=== PATIENT | female | born 1940 | race Caucasian/White ===

== ENCOUNTER → 2018-02-15 14:10 | Outpatient (CLI) | payer MEDICARE, OTHER, SELFPAY ==
--- NOTE | 2018-02-15 14:16 | CT_ITS ---
STUDY: CT ABDOMEN AND PELVIS WITH AND WITHOUT CONTRAST REASON FOR EXAM: Female, 77 years old. Hematuria. RADIATION DOSAGE (If Supplied By Facility): CTDIvol = ( 30.91 ) mGy, DLP = ( 2093.68 ) mGycm TECHNIQUE: Transaxial images were obtained from the dome of the diaphragm to the symphysis pubis without oral contrast. 100ml ml of Isovue 300 contrast was administered. Sagittal and coronal images were reconstructed. Individualized dose optimization techniques were used for this CT. COMPARISON: None. FINDINGS: The visualized lung bases are unremarkable. The visualized portions of the heart are within normal limits. Normal liver. There are surgical clips in the gallbladder fossa consistent with a prior cholecystectomy. Normal spleen. Is fatty replacement of the pancreas without focal mass. Normal bilateral adrenal glands. The right kidney is of normal size and cortical thickness. There is normal enhancement. There is no calyceal dilatation. There is a 1.1 x 0.9 x 0.9 cm calcification in the renal pelvis with mild peripelvic stranding. The right ureter is mildly prominent but passes of the bladder without filling defect. There are cysts in the upper pole of the otherwise normal left kidney. There is no renal calculi or hydronephrosis. Normal left ureter. Normal visualized stomach. Normal small intestine. There is sigmoid diverticulosis without acute inflammatory change. There are surgical clips in the region of the appendix consistent with a prior appendectomy. Normal abdominal aorta. Normal inferior vena cava. Normal retroperitoneum. Normal urinary bladder. Normal vaginal cuff. There is no pelvic lymphadenopathy or mass. No free air or free fluid is seen within the peritoneal cavity. Normal abdominal wall. There is surgical fusion of L5-S1. CT/CT Abd/Pelvis W/WO Contrast IMPRESSION: 1. Large calculus in the right renal pelvis with associated stranding. 2. Left renal cysts. 3. Diverticulosis. 4. Fatty replacement of the pancreas. 5. Status post appendectomy and hysterectomy. 6. Status post cholecystectomy. 7. Posterior fusion of L5-S1. Electronically Signed: Miguel Magallanes DO at 21:12 EDT Tel [phone], Service support ,
[2018-02-15 14:41] LABS: CREATININE FINGERSTICK 0.8 mg/dL (0.55-1.02); EGFR FINGERSTICK > 60.0000 mL/min (>60)
== END ==
PROVIDERS: Family Provider Family Medicine; PCP Family Medicine; Referring Provider Nurse Practitioner Adult Health; Visit Provider Nurse Practitioner Adult Health
DX: N20.0 Calculus of kidney (principal); N28.1 Cyst of kidney, acquired; K57.90 Diverticulosis of intestine, part unspecified, without perforation or abscess without bleeding
CPT/HCPCS: 74178; Q9967

== ENCOUNTER → 2018-02-19 14:17 | Outpatient (CLI) | payer MEDICARE, OTHER, SELFPAY ==
--- NOTE | 2018-02-19 14:19 | RAD_ITS ---
STUDY: X-RAY - ABDOMEN/PELVIS REASON FOR EXAM: Female, 77 years old. Right-sided kidney stone. TECHNIQUE: AP supine abdomen 3 views. COMPARISON: February 15, 2018. FINDINGS: Normal visualized lung bases. There is an unremarkable bowel gas pattern. There is no demonstrated free abdominal air. The visualized liver, spleen and kidneys are grossly normal in size and morphology. 9 mm round density lateral to L3 compatible with a proximal ureteral stone noted previously. Postoperative changes of lumbar fusion L5-S1. 2 mm calcification right hemipelvis probably represents a phlebolith. Normal soft tissue structures. Normal visualized osseous structures. RAD/Abdomen Single View IMPRESSION: 9 mm proximal right ureteral calculus noted previously. Position of the stone has not significantly changed. Electronically Signed: Fabian Ireland MD at 8:14 EDT , Service support ,
== END ==
PROVIDERS: Family Provider Family Medicine; PCP Family Medicine; Referring Provider Nurse Practitioner Adult Health; Visit Provider Nurse Practitioner Adult Health
DX: N20.1 Calculus of ureter (principal)
CPT/HCPCS: 74018

== ENCOUNTER 2018-02-22 10:14 | Day surgery (SDC) | payer MEDICARE, OTHER, SELFPAY ==
[2018-02-22 10:37] VITALS: BP 178/86; PULSE 70; RESP 18; TEMP 36.9; O2SAT 94; BMI 39.9
[2018-02-22] MEDS: Cefazolin 2 GM in 0.9% Normal Saline 100 ML IV (13:07)
--- NOTE | 2018-02-22 13:21 | DCINST_ITS ---
Discharge Diet: Light diet - advance as tolerated Discharge Activity: Return to Normal Activity Call your doctor if your incision/area has: Sudden Increased Bleeding Call your doctor if you observe: Fever of 101 or Higher Suture Line Care: Avoid Pulling/Pushing, Avoid Pinching/Bending Additional Instructions: use tylenol 500mg and ibuprofen 600mg for pain or discomfort. Allergies/Adverse Reactions: Allergies doxepin Allergy (Verified 02/21/18 08:30) Other CONFUSION lisinopril Allergy (Verified 02/21/18 08:29) Swelling verapamil Allergy (Verified 02/21/18 08:29) Other CONFUSED Medications to take at Discharge Albuterol IH (ProAir) [Proair Hfa (SP)Vent Pts] 1 - 2 puff INHALATION Q6H PRN PRN 09/16/14 Celecoxib [Celebrex] 200 mg PO DAILY 09/16/14 Cholecalciferol (VIT D3) [Vitamin D3] 1,000 unit PO DAILY 09/16/14 Clopidogrel Bisulfate [Plavix] 75 mg PO DAILY 09/16/14 Duloxetine HCl 60 mg PO 0700 09/16/14 Levothyroxine [Synthroid] 112 mcg PO DAILY 09/16/14 Multivit with Calcium,Iron,Min [Multiple Vitamins For Women] 1 each PO DAILY 09/16/14 Nitroglycerin [Nitrolingual [place]] 0.4 mg SUBLINGUAL Q10M PRN PRN 09/16/14 proMETHazine tablet [Phenergan] 25 mg PO Q6H PRN PRN 09/16/14 B Complex with Vitamin C [Vitamin B-Complex with Vit C] 1 each PO DAILY 02/21/18 Domperidone 10 mg PO TID 02/21/18 Duloxetine Hcl [Cymbalta] 60 mg PO 2000 02/21/18 Eletriptan Hydrobromide [Relpax] 40 mg PO .X1 PRN PRN 02/21/18 Erenumab-Aooe [Aimovig Autoinjector] 70 mg SQ UD 02/21/18 Fentanyl 1 each TD UD 02/21/18 Fluticasone/Vilanterol [Breo Ellipta 200-25 Mcg INH] 1 each IH DAILY 02/21/18 Gabapentin [Neurontin] 300 mg PO BID 02/21/18 Lidocaine 1 each TP UD PRN 02/21/18 Melatonin 10 mg PO QHS 02/21/18 Metoprolol Tartrate [Lopressor] 50 mg PO BID 02/21/18 Mometasone Furoate [Nasonex] 1 spray NASAL DAILY 02/21/18 Nitram 4 mg PO TID 02/21/18 Omeprazole [Prilosec] 20 mg PO QHS 02/21/18 Oxycodone HCl/Acetaminophen [Percocet 5/325] 1 tablet PO Q6H PRN PRN 02/21/18 Pantoprazole Sodium [Protonix] 40 mg PO DAILY 02/21/18 Prednisone 7.5 mg PO DAILY 02/21/18 Simvastatin [Zocor] 10 mg PO QHS 02/21/18 Tizanidine HCl [Zanaflex] 4 mg PO PRN PRN 02/21/18 Oranitram 1 tab PO TID 02/22/18 Primary Care Physician: James Sotelo DO [Primary Care Provider] - Test Results: Test results from this visit will be discussed in further detail at your follow- up appointment, if applicable. Please Follow Up With: Dex Allen MD When: in 2 weeks, please call to make an appointment.
--- NOTE | 2018-02-22 14:11 | PCM.OPRPT ---
Report of Operation Date of Procedure: 02/22/18 Pre-Operative Diagnosis: Right kidney stone Post-Operative Diagnosis: Same Surgery/Procedure Performed:: Right extracorporeal shockwave lithotripsy Description of Surgical Findings:: 77-year-old female taken back to the operating room after smooth induction of general anesthesia she was placed supine on the table in the lithotripter. We then used fluoroscopy to scan the right kidney and the stone in the right kidney was identified we then triangulated the F2 focal point of the machine onto the stone after translation was accomplished then we delivered 3000 shockwaves to the stone. Initially restarted at a rate of 60 and then after about 1500 shockwaves the stone broke up fairly well to increase the rate of shockwave to 90/min and increased the power ranging from 5-7 at the end of the 3000 shockwaves a stone to break up successfully could not see any more significant fragments under x-ray therefore no stent was placed patient's anesthetic was reversed is taken back to PACU PACU in good condition plan to see her back in a few weeks with an x-ray. Type of Anesthesia:: General Drains: none - Admit VTE Documentation VTE Present on Admission: No VTE Mechan Device Prophylaxis: SCD's
[2018-02-22 14:15] VITALS: BP 178/86; BP 187/97; PULSE 86; RESP 16; TEMP 36.4; O2SAT 100
[2018-02-22 14:30] VITALS: BP 170/86; BP 178/86; PULSE 80; RESP 16; O2SAT 100
[2018-02-22 14:45] VITALS: BP 176/86; BP 178/86; PULSE 78; RESP 16; O2SAT 94
[2018-02-22 14:56] VITALS: BP 153/85; BP 178/86; PULSE 77; RESP 16; TEMP 36.5; O2SAT 94
--- NOTE | 2018-02-22 15:19 | NURSING ---
up to bathroom, voided qs, adan urine with pink tinge.
== END 2018-02-22 15:15 | disposition home or self-care (01) ==
LOC: SDC 10:15 → AC 10:18
PROVIDERS: Family Provider Family Medicine; PCP Family Medicine; Referring Provider Urology; Visit Provider Urology
PROC: (CPT 50590; principal; 2018-02-22 12:20)
DX: N20.0 Calculus of kidney (principal); K21.9 Gastro-esophageal reflux disease without esophagitis; G25.81 Restless legs syndrome; Z79.899 Other long term (current) drug therapy; Z79.02 Long term (current) use of antithrombotics/antiplatelets; I27.20 Pulmonary hypertension, unspecified; Z99.81 Dependence on supplemental oxygen; I50.9 Heart failure, unspecified; I11.0 Hypertensive heart disease with heart failure; Z86.73 Personal history of transient ischemic attack (TIA), and cerebral infarction without residual deficits; E03.9 Hypothyroidism, unspecified; E78.5 Hyperlipidemia, unspecified
CPT/HCPCS: 00873; 50590; J7120; J2405

== ENCOUNTER → 2018-03-12 09:39 | Outpatient (CLI) | payer MEDICARE, OTHER, SELFPAY ==
--- NOTE | 2018-03-12 09:41 | RAD_ITS ---
STUDY: X-RAY - ABDOMEN/PELVIS REASON FOR EXAM: Female, 77 years old. Right-sided postoperative kidney stone from 2 weeks ago. The TECHNIQUE: KUB COMPARISON: X-ray abdomen 02/19/[address] abdomen and pelvis 02/07/2018. FINDINGS: On the CT scan of 02/07/2018 there was a 1.2 cm calculus within the right renal pelvis. On the x-ray of 02/19/2018 that calculus appear to remain in the same position. On today's imaging, the calculus is not visible. Prominent stool burden of large bowel may reflect constipation. Small bowel pattern unremarkable. No free air. No acute osseous process. RAD/Abdomen Single View IMPRESSION: No visible remnant calculus of the right urinary tract. Suspected constipation. Electronically Signed: Ladarius Coombs, at 10:34 EDT Tel , Service support ,
== END ==
PROVIDERS: Family Provider Family Medicine; PCP Family Medicine; Referring Provider Urology; Visit Provider Urology
DX: N20.0 Calculus of kidney (principal); R82.998 Other abnormal findings in urine
CPT/HCPCS: 74018; 87086; 87088

== ENCOUNTER → 2019-04-11 10:43 | Outpatient (CLI) | payer MEDICARE, OTHER, SELFPAY ==
--- NOTE | 2019-04-11 10:46 | ART_ITS ---
Reason For Study: Decreased pulses in foot Procedure A bilateral lower extremity continuous wave Doppler with analog waveform analysis and ankle brachial indexes. Left Segmental Pressures Left brachial= 155mmHg. Left posterior tibial artery = 198mmHg. Left dorsalis pedis artery = 185mmHg. Left digit = 137 mmHg. The left dorsalis pedis waveforms are triphasic. The left posterior tibial artery waveforms are triphasic. Right Segmental Pressures Right brachial= 159mmHg. Right posterior tibial artery = 180mmHg. Right dorsalis pedis artery = 171mmHg. Right digit = 117 mmHg. The right dorsalis pedis waveforms are triphasic. The right posterior tibial artery waveforms are triphasic. Indices The right ankle brachial index by the dorsalis pedis is 1.08. The right ankle brachial index by the posterior tibial artery is 1.13. The right digital-brachial index is 0.74. The left ankle brachial index by the dorsalis pedis is 1.16. The left ankle brachial index by the posterior tibial artery is 1.25. The left digital-brachial index is 0.86. Interpretation Summary Triphasic Doppler waveforms are noted at ankle level bilaterally. Pulse-volume recordings appear satisfactory at ankle and digital level bilaterally. Resting ankle-brachial indices are normal bilaterally. Digital-brachial indices are normal bilaterally. There is no evidence of significant arterial occlusive disease in the lower extremities bilaterally. Ordering Physician: Mukul Duarte Referring Physician: Mukul Duarte Performed By: Marina Styles RVT
== END ==
PROVIDERS: Family Provider Family Medicine; PCP Family Medicine; Referring Provider Family Medicine; Visit Provider Family Medicine
DX: R09.89 Other specified symptoms and signs involving the circulatory and respiratory systems (principal)
CPT/HCPCS: 93922

== ENCOUNTER → 2019-05-15 13:45 | Outpatient (CLI) | payer MEDICARE, OTHER, SELFPAY ==
[2019-05-15 15:55] LABS: Vitamin B12 1332 pg/mL (211-911); Vitamin D,25 Hydroxy 61.2 ng/mL (29.95-100.01)
[2019-05-15 16:18] LABS: ALB/GLOB Ratio 0.9 RATIO (0.9-2.4); AST(SGOT) 29 U/L (15-37); Alanine Aminotransfer ALT/SGPT 30 U/L (13-56); Alkaline Phosphatase 145 U/L (45-117); Anion Gap 7 (5-15); BUN 10 mg/dL (7-18); BUN/Creat Ratio 12.7 RATIO (10-20); Calcium,Total 8.7 mg/dL (8.5-10.1); Chloride 103 mmol/L (98-107); Cholesterol 78 mg/dL (200); Creatinine, Serum 0.78 mg/dL (0.55-1.02); EST Glomerular Filtration Rate 75 mL/min (>60); Est Glom Filt Rate - Afr Amer 91 mL/min (>60); Globulin 3.5 g/dL (2.2-4.2); Glucose 129 mg/dL (74-106); High Density Lipoprotein 41 mg/dL; Phosphorus 2.7 mg/dL (2.5-4.9); Potassium 2.6 mmol/L (3.5-5.1); Protein, Total 6.5 g/dL (6.4-8.2); Sodium Level 141 mmol/L (136-145); T4 Free Direct 1.04 ng/dL (0.76-1.46); Thyroid Stim Hormone (TSH) 0.71 uIU/mL (0.358-3.74); Triglycerides 83 mg/dL; Very Low Density Lipoprotein 17 mg/dL (5-40)
[2019-05-15 16:33] LABS: Absolute Lymphocyte Count 1.61 X10^3/uL (0.83-4.51); Basophil# 0.03 X10^3/uL; Basophil% 0.3 % (0-1); Eosinophil# 0.25 X10^3/uL; Eosinophils% 2.9 % (0-5); Hematocrit 37.5 % (37-47); Hemoglobin 11.9 g/dL (12.0-15.0); Lymphocyte # 1.61 X10^3/ul (4.0); Lymphocyte % 18.6 % (19-41); Mean Corp Hgb Conc 31.7 g/dL (32-36); Mean Corpuscular Hgb 29.3 pg (27.0-32.0); Mean Corpuscular Volume 92.4 fL (81-99); Mean Platelet Vol. 11.2 fl (6.2-12.0); Monocyte# 0.76 X10^3/uL; Monocyte% 8.8 % (0-10); NRBC Flagged by Analyzer 0 % (0-5); Neutrophil # 5.96 X10^3/uL (2.7-7.7); Neutrophil % 69.1 % (47-70); Platelet Count 338 K/mm3 (150-450); RBC Distribution Width CV 14.8 % (11.6-14.6); RBC Distribution Width SD 50.6 fl (35.1-43.9); Red Blood Count 4.06 M/mm3 (4.2-5.4); White Blood Count 8.6 K/mm3 (4.4-11.0)
== END ==
PROVIDERS: Family Provider Family Medicine; PCP Family Medicine; Visit Provider Family Medicine
DX: I50.42 Chronic combined systolic (congestive) and diastolic (congestive) heart failure (principal); M85.80 Other specified disorders of bone density and structure, unspecified site; E03.9 Hypothyroidism, unspecified; R41.3 Other amnesia; Z86.73 Personal history of transient ischemic attack (TIA), and cerebral infarction without residual deficits
CPT/HCPCS: 36415; 80053; 80061; 82306; 82607; 84100; 84439; 84443; 85025

== ENCOUNTER → 2019-05-27 12:27 | Outpatient (CLI) | payer MEDICARE, OTHER, SELFPAY ==
[2019-05-27 15:44] LABS: Anion Gap 6 (5-15); BUN 10 mg/dL (7-18); BUN/Creat Ratio 12.3 RATIO (10-20); Chloride 104 mmol/L (98-107); Creatinine, Serum 0.81 mg/dL (0.55-1.02); EST Glomerular Filtration Rate 72 mL/min (>60); Est Glom Filt Rate - Afr Amer 88 mL/min (>60); Glucose 119 mg/dL (74-106); Magnesium 1.7 mg/dL (1.6-2.6); Potassium 2.9 mmol/L (3.5-5.1); Sodium Level 139 mmol/L (136-145)
== END ==
PROVIDERS: Family Provider Family Medicine; PCP Family Medicine; Referring Provider Family Medicine; Visit Provider Family Medicine
DX: E87.6 Hypokalemia (principal); R19.7 Diarrhea, unspecified
CPT/HCPCS: 36415; 80048; 83735

== ENCOUNTER → 2019-05-29 13:38 | Outpatient (CLI) | payer MEDICARE, OTHER, SELFPAY | LOC: MFPLAB 13:39 → LABSPEC 13:40 | PROVIDERS: Family Provider Family Medicine; PCP Family Medicine; Referring Provider Family Medicine; Visit Provider Family Medicine | DX: R19.7 Diarrhea, unspecified (principal) | CPT/HCPCS: 87493; 87506 ==

== ENCOUNTER → 2019-06-13 11:43 | Outpatient (CLI) | payer MEDICARE, OTHER, SELFPAY ==
--- NOTE | 2019-06-13 11:43 | RAD_ITS ---
STUDY: X-RAY CHEST REASON FOR EXAM: Female, 78 years old. confusion -- cough TECHNIQUE: PA and lateral views of the chest. COMPARISON: 01/07/1715 FINDINGS: The lungs are clear and expanded. There is no demonstrated pleural abnormality. Normal size heart. Normal mediastinum and cong. Normal visualized pulmonary arteries. Normal visualized aortic arch and descending thoracic aorta. Normal visualized thoracic spine. Normal visualized ribs, clavicles, and shoulders. There is no demonstrated abnormality of the visualized soft tissue structures of the upper abdomen. RAD/Chest PA and Lateral IMPRESSION: Normal x-ray examination of the chest. Electronically Signed: Ladarius Vazquez MD at 15:23 EST Tel , Service support ,
== END ==
PROVIDERS: PCP Family Medicine; Referring Provider Family Medicine; Visit Provider Family Medicine
DX: R41.0 Disorientation, unspecified (principal)
CPT/HCPCS: 71046

== ENCOUNTER → 2019-06-19 11:34 | Outpatient (CLI) | payer MEDICARE, OTHER, SELFPAY ==
[2019-06-19 14:22] LABS: Potassium 3.2 mmol/L (3.5-5.1)
[2019-06-20 13:18] LABS: Carbohydrate AG 19-9 212 U/mL (0-35)
[2019-06-25 14:00] LABS: Fats, Neutral Increased (.); Fats, Total Increased (.)
== END ==
PROVIDERS: PCP Family Medicine; Referring Provider Internal Medicine Gastroenterology; Visit Provider Internal Medicine Gastroenterology
DX: D37.9 Neoplasm of uncertain behavior of digestive organ, unspecified (principal); K59.1 Functional diarrhea; R63.4 Abnormal weight loss; R93.5 Abnormal findings on diagnostic imaging of other abdominal regions, including retroperitoneum; R73.09 Other abnormal glucose
CPT/HCPCS: 36415; 82705; 83036; 84132; 86301

== ENCOUNTER → 2019-06-24 10:42 | Outpatient (CLI) | payer MEDICARE, OTHER, SELFPAY ==
--- NOTE | 2019-06-24 11:30 | MRI_ITS ---
STUDY: MRI BRAIN WITH AND WITHOUT CONTRAST REASON FOR EXAM: Female, 78 years old. CONFUSION, ANISOCORIA TECHNIQUE: Standardized multiplanar fat and water weighted pulse sequences were obtained. IV DOTAREM 20ML was administered for the contrast portion of the examination. COMPARISON: None. FINDINGS: Examination is markedly technically degraded in part due to motion artifacts. Postcontrast images are most affected. The detection of small lesions, less than 5 mm, is not realistically possible. There is no acute infarct. There is no mass effect, midline shift, extra parenchymal fluid collections, hydrocephalus or herniation. There is a small mixed signal focus in the right mid rodrigez radiata with small chronic hemosiderin hemorrhagic component. MRI/Brain W/WO Contrast IMPRESSION: 1. No acute findings. 2. Right rodrigez radiata small lesion, probably small remote ischemic/microhemorrhagic event. Electronically Signed: Sonam Melendez, at 17:44 EST Tel , Service support ,
== END ==
LOC: MRI 10:43
PROVIDERS: PCP Family Medicine; Referring Provider Family Medicine; Visit Provider Family Medicine
DX: R41.0 Disorientation, unspecified (principal)
CPT/HCPCS: 70553; A9575

== ENCOUNTER → 2019-06-30 12:01 | Outpatient (CLI) | payer MEDICARE, OTHER, SELFPAY ==
[2019-06-30 14:11] LABS: Potassium 4.7 mmol/L (3.5-5.1)
== END ==
PROVIDERS: PCP Family Medicine; Referring Provider Family Medicine; Visit Provider Family Medicine
DX: E87.6 Hypokalemia (principal)
CPT/HCPCS: 36415; 84132

== ENCOUNTER → 2019-07-04 14:08 | Outpatient (CLI) | payer MEDICARE, OTHER, SELFPAY ==
[2019-07-04 15:51] LABS: ALB/GLOB Ratio 0.8 RATIO (0.9-2.4); AST(SGOT) 28 U/L (15-37); Alanine Aminotransfer ALT/SGPT 50 U/L (13-56); Albumin, Serum 3.4 g/dL (3.2-5.0); Alkaline Phosphatase 125 U/L (45-117); Anion Gap 4 (5-15); BUN 24 mg/dL (7-18); BUN/Creat Ratio 22.6 RATIO (10-20); Chloride 104 mmol/L (98-107); Creatinine, Serum 1.06 mg/dL (0.55-1.02); EST Glomerular Filtration Rate 53 mL/min (>60); Est Glom Filt Rate - Afr Amer 65 mL/min (>60); Globulin 4.1 g/dL (2.2-4.2); Glucose 105 mg/dL (74-106); Potassium 4.5 mmol/L (3.5-5.1); Prealbumin 35.3 mg/dL (20.0-40.0); Protein, Total 7.5 g/dL (6.4-8.2); Sodium Level 136 mmol/L (136-145)
== END ==
PROVIDERS: PCP Family Medicine; Referring Provider Family Medicine; Visit Provider Family Medicine
DX: R77.9 Abnormality of plasma protein, unspecified (principal); R94.5 Abnormal results of liver function studies
CPT/HCPCS: 36415; 80053; 84134